=== PATIENT | female | born 1990 | race Caucasian/White ===

== ENCOUNTER 2016-10-10 11:03 | Outpatient (CLI) | payer MEDICAID ==
[~2016-10-10] VITALS: Ht 175.3 cm; Wt 140.0 kg
[~2016-10-10 11:03] MED LIST: NO HOME MEDICATIONS
[2016-10-10 11:07] VITALS: BP 134/74; PULSE 98; TEMP 98.2
[2016-10-10] MEDS ORDERED: PRENATAL FORMU1 EAC3 PO (11:14)
[2016-10-10 12:15] VITALS: BP 120/64; PULSE 84
== END 2016-10-10 12:40 | disposition home or self-care (01) ==
LOC: LDRO 11:03 → LDR 11:20 → LDRO 12:40
DX: O47.1 False labor at or after 37 completed weeks of gestation (principal); Z3A.37 37 weeks gestation of pregnancy
CPT/HCPCS: OP

== ENCOUNTER 2016-10-26 08:59 | Inpatient (IN) | payer MEDICAID ==
[~2016-10-26] VITALS: Ht 175.3 cm; Wt 140.9 kg
[~2016-10-26 08:59] MED LIST changes: +PRENATAL FORMU1 EAC3 PO
[2016-10-27] VITALS (18 sets, daily range): BP systolic 84–121; BP diastolic 53–76; PULSE 57–108; TEMP 97.7–98.3
[2016-10-27 10:47] LABS: BASO % 0.3 % (0.0-2.0); EOS # 0.4 (0.0-0.7); EOS % 3.5 % (0-4.0); GRAN # 6.9 (1.4-6.5); GRAN % 67.5 % (42.2-75.2); HEMATOCRIT 37.8 % (37.0-47.0); HEMOGLOBIN 12.5 g/dl (12.5-16.0); LYMPH # 1.9 (1.2-3.4); LYMPH % 18.5 % (20.0-51.0); MEAN CELL VOLUME 81 fl (80.0-100.0); MEAN CORPUSCULAR HEMOGLOBIN 27 pg (27.0-31.0); MEAN CORPUSCULAR HGB CONC 33 g/dl (33.0-37.0); MONO % 9.7 % (1.7-9.3); PLATELET COUNT 299 K/mm3 (130-400); RED BLOOD COUNT 4.68 M/mm3 (4.10-5.30); REDCELL DISTRIBUTION WIDTH-CV 13.4 % (11.5-14.5); WHITE BLOOD COUNT 10.2 K/mm3 (4.8-10.8)
[2016-10-28 02:00] VITALS: BP 120/65; PULSE 85; TEMP 98.5
[2016-10-28] MEDS ORDERED: PERCOCET 325 MG1 TA2 PO (07:37)
[2016-10-28] MEDS ORDERED: IBU600 MG PO (07:37)
[2016-10-28 07:51] LABS: HEMATOCRIT 35.5 % (37.0-47.0); HEMOGLOBIN 11.5 g/dl (12.5-16.0)
[2016-10-28 08:00] VITALS: BP 111/65; PULSE 100; TEMP 97.7
[2016-10-28 20:00] VITALS: BP 129/70; PULSE 103; TEMP 98.2
[2016-10-29 08:35] VITALS: BP 126/72; PULSE 89; TEMP 98.2
[2016-10-29 16:00] VITALS: BP 107/61; PULSE 94; TEMP 97.6
[2016-10-29 19:30] VITALS: BP 136/78; PULSE 91; TEMP 98.1
[2016-10-30 08:00] VITALS: BP 135/83; PULSE 86; TEMP 97.6
== END 2016-10-30 14:45 | disposition home or self-care (01) | DRG 766 ==
LOC: LDR 08:59 → OB 10-27 09:44 → LDR 10-27 09:58 → OB 10-30 14:45
PROVIDERS: Obstetrics & Gynecology
PROC: 10D00Z1 Extraction of Products of Conception, Low, Open Approach (ICD-10-PCS; principal; 2016-10-27)
PROC: 0UT50ZZ Resection of Right Fallopian Tube, Open Approach (ICD-10-PCS; 2016-10-27)
PROC: 0UT00ZZ Resection of Right Ovary, Open Approach (ICD-10-PCS; 2016-10-27)
DX: O34.211 Maternal care for low transverse scar from previous cesarean delivery (principal); N85.8 Other specified noninflammatory disorders of uterus; O99.824 Streptococcus B carrier state complicating childbirth; O34.83 Maternal care for other abnormalities of pelvic organs, third trimester; N83.201 Unspecified ovarian cyst, right side; O77.0 Labor and delivery complicated by meconium in amniotic fluid; Z3A.39 39 weeks gestation of pregnancy; Z37.0 Single live birth
CPT/HCPCS: J0690; J1885; J2270; J2370; J2405; J2590; J2765; J7120